=== PATIENT | female | born 1985 | race African-American/Black ===

== ENCOUNTER 2022-09-15 15:05 | Emergency (ER) | payer OTHER ==
[~2022-09-15] VITALS: Ht 165.1 cm; Wt 110.7 kg
[2022-09-15] MEDS ORDERED: IBUPROFEN 600 MG TAB PO STA (16:08)
[2022-09-15] MEDS ORDERED: CYCLOBENZAPRINE5 MG PO (16:13)
[2022-09-15] MEDS ORDERED: IBUPROFEN800 MG PO (16:13)
== END 2022-09-15 16:25 | disposition home or self-care (01) ==
LOC: FSED 15:24
DX: S29.012A Strain of muscle and tendon of back wall of thorax, initial encounter (principal); V43.52XA Car driver injured in collision with other type car in traffic accident, initial encounter; Y92.488 Other paved roadways as the place of occurrence of the external cause; I10 Essential (primary) hypertension
CPT/HCPCS: 99283